=== PATIENT | female | born 1995 | race Caucasian/White ===

== ENCOUNTER 2016-07-17 14:33 | Emergency (ER) | payer SELFPAY ==
[2016-07-17] MEDS ORDERED: Sodium Chloride 0.9% 1,000 ML PRIMARY IV ONE (14:41)
[2016-07-17] MEDS ORDERED: ONDANSETRON 4 MG/2 ML VIAL IVP ONE (14:41)
[2016-07-17] MEDS ORDERED: MECLIZINE 25 MG CHEWABLE TABLET PO ONE (14:41)
--- NOTE | 2016-07-17 14:48 | PDOC ---
Gen Adult / Medical Screen HPI - General Chief Complaint: General Medical Stated Complaint: DIZZY, ?NEAR SYNCOPE Date Seen by Provider: 07/17/16 Time Seen by Provider: 14:42 Source: POSITIVE: Patient Exam Limitations: POSITIVE: No limitations Nurse's Notes Reviewed & Considered: Yes - Indicators Temperature Between 95 and 101 Degrees: Yes Respirations Between 12 and 20: Yes Blood Pressure Between 100-165 (sys) and 60-100 (sood): Yes Pulse Range Between 60-105 (100 for age > 60 years): Yes Severe Pain (Greater than 5/10 Reported): No Chest or Abdominal Pain: No Inability to Walk: No Pt Reports Active High Risk Cond. (TB/Hepatitis/HIV/Chemo): No Abnormal Mental Status: No - History of Present Illness Initial Comments: Patient comes in today chief complaint of dizziness. Patient was at work today when she became dizzy. She had not eaten all day. She then had something to eat at this time is starting to feel better. She had a near-syncope episode with sweating and nausea but no vomiting no fever or chills. She does have orthostatic hypotension recumbent her blood pressure is 112/59 with pulse rate of 99, sitting her blood pressure is 120/72 with a pulse rate of 109, standing her blood pressure is 1/71 with a pulse rate of 118. Body Location Affected: REPORTS: Head, Abdomen Timing: REPORTS: Abrupt Duration: 1-3 hours Similar Symptoms Previously: Yes Recent Care Received: REPORTS: Denies Any Prior Injuries Related to Current Complaint?: No - Patient Home Medications Home Medications: Home Medications NK [No Home Medications Reported] 07/17/16 - Patient Allergies Allergies/Adverse Reactions: Allergies Allergy/AdvReac Type Severity Reaction Status Date / Time No Known Allergies Allergy Verified 07/17/16 14:54 Past Medical History - heen HEENT History: Other (please comment) Additional HEENT History: TONSILLECTOMY Cardiovascular History: Denies History Respiratory History: Denies History Gastrointestinal History: Other (please comment) Additional Gastrointestinal History: APPY Genitourinary History: Denies History Endocrine History: Denies History Musculoskeletal History: Denies History Prosthesis or Implant: No Neurological History: Denies History Blood Disorders: Denies History Psychiatric History: Denies History Cancer History: Denies History History of MDRO: No Alcohol Use: Rarely Substance Use Type: None Previous Surgical History: Yes Type / Date of Surgery: APPY. TONSILS Significant Family History: No pertinent family hx ROS - Limitations ROS Limitations: No Limitations Constitution: REPORTS: Diaphoresis Cardiovascular: REPORTS: Denies Cardiac Symptoms Respiratory: REPORTS: Denies Resp Symptoms Neurological: REPORTS: Weakness Gastrointestinal: REPORTS: Nausea Endocrine: REPORTS: Denies Symptoms Musculoskeletal: REPORTS: Denies MS Symptoms Genitourinary: REPORTS: Denies Symptoms Eyes: REPORTS: Denies Symptoms ENT: REPORTS: Denies Symptoms Skin: REPORTS: Denies Skin Symptoms Lympathic: REPORTS: Denies Lympathic Symptoms Immunologic: POSITIVE: Denies Symptoms Psychiatric: POSITIVE: Denies Psych Symptoms Gen Adult/Medical Screen Exam - General Appearance General Appearance: POSITIVE: Alert, Cooperative, No Acute Distress, No Evidence of Trauma - HEENT HEENT: POSITIVE: Head Inspection Nml, Eyes Inspection Nml, Ears Inspection Nml, Nose Inspection Nml, Oral/Dental Inspect. Nml, Pharynx Inspect. Nml, PERRL, EOMI - Pupils Pupil Size: 6 mm: Bilateral - Neck Neck: POSITIVE: Normal Inspection, Thyroid Normal - Respiratory Respiratory: POSITIVE: No Respiratory Distress, Breath Sounds Normal, Chest Non- Tender - Cardiovascular Cardiovascular: POSITIVE: Regular Rate & Rhythm, No Murmur, No Gallop, PMI Normal - Abdomen Abdomen: Soft: (All Quadrants), Normal Bowel Sounds: (All Quadrants), Denies Tenderness: (All Quadrants) - Back Back: POSITIVE: Normal Inspection - Neurological / Psychological Mental Status: POSITIVE: Mood Normal, Affect Normal Orientation: POSITIVE: Oriented x 3 Reflexes: Radial (R): 3+, Radial (L): 3+ - Skin Skin: POSITIVE: Normal Color, Warm, Dry, No Rash - Extremities Extremity: Non-Tender: (All Extremities), Normal ROM: (All Extremities), Normal Inspection: (All Extremities) Gen Adlt/Medical Scrn Progress - Results Reviewed by me Lab Results Reviewed: Yes Lab Results:: Laboratory Results 07/17/16 07/17/16 Range/Units 14:41 14:50 WBC 10.83 H (4.8-10.8) 10^3/uL RBC 4.65 (4.20-5.40) 10^6/uL Hgb 14.7 (12.0-16.0) g/dL Hct 43.4 (37.0-47.0) % MCV 93.3 (81-99) FL MCH 31.6 H (27-31) PG MCHC 33.9 (33-37) g/dL RDW Std Deviation 41.7 (39-50) fL RDW Coeff of Brenden 12.4 (11.5-14.5) % Plt Count 272 (140-350) 10*3/uL MPV 10.8 (7.4-12.2) FL Immature Gran % (Auto) 0.2 (0-5) % Neut % (Auto) 66.0 (50-80) % Lymph % (Auto) 25.9 (10-50) % [place] % (Auto) 7.2 (5-15) % Eos % (Auto) 0.4 (0-8) % Baso % (Auto) 0.3 (0-1) % Immature Gran # (Auto) 0.02 10*3/UL Neut # (Auto) 7.16 10*3/UL Lymph # (Auto) 2.80 10*3/uL [place] # (Auto) 0.78 (0.3-0.8) 10*3/UL Eos # (Auto) 0.04 10*3/UL Baso # (Auto) 0.03 10*3/UL WBC Morphology Comment Normal morphology (NORM) Plt Morphology Comment Normal morphology (NORM) RBC Morph Comment Normal morphology (NORM) Sodium 141 (135-145) meq/L Potassium 3.8 (3.8-5.2) meq/L Chloride 103 (98-112) meq/L Carbon Dioxide 25 (23-33) meq/L Anion Gap 13 (5-20) BUN 12 (7-22) mg/dL Creatinine 0.7 (0.50-1.20) mg/dL Estimated GFR > 60 (>60 ml/min/1.73m(2)) BUN/Creatinine Ratio 17.14 (6-20) Glucose 57 L (78-110) mg/dL Mean Blood Glucose 77.503 mg/dL Hemoglobin A1c 4.91 (4.2-6.0) % Calculated Osmolality 289.0 (267-292) mOsm/kg Calcium 9.6 (8.7-10.7) mg/dL Magnesium 2.1 (1.6-2.4) mg/dL Total Bilirubin 1.4 H (0.3-1.2) mg/dL AST 66 H (8-39) IU/L ALT 17 (9-52) IU/L Alkaline Phosphatase 72 (38-126) IU/L Total Protein 8.3 H (6.1-8.0) g/dL Albumin 4.8 (3.5-4.8) g/dL Globulin 3.5 (2.50-4.10) g/dL Albumin/Globulin Ratio 1.30 (1.3-2.0) mg/g U Specif Grav (Refrac) 1.023 Urine HCG, Qual Negative EKG Interpretation:: POSITIVE: Normal Sinus Rhythm - Patient's Progress Pain Medication Addressed: POSITIVE: Yes Re-Examine Time: 16:58 Status: POSITIVE: Improved MDM / ED Course: Patient was examined, an IV started, blood drawn and sent to the lab for studies. She received a liter of normal saline, Zofran, and Tylenol, she also received meclizine. Findings: Glucose low at 57 neck Assessment: Dizziness, most likely related to hypoglycemia. Plan: Discharge home. Follow up with primary care physician - Consult Counseled: POSITIVE: Patient, Family, RE: Lab Results, RE: DX, RE: Need for F/U Patient Care Time - Estimated PCT Patient Care Time (In Minutes): 45 Vital Signs - Recent Vital Signs Vital Signs: Vital Signs (Last 8 hours) Temp Pulse Pulse Pulse Pulse Resp BP 07/17/16 14:44 99 109 H 118 H 07/17/16 14:35 97.5 F 112 H 16 129/79 BP BP BP Pulse Ox 07/17/16 14:44 112/59 120/72 106/71 07/17/16 14:35 98 - VS Reviewed Vital Signs Reviewed: Yes Discharge Clinical Impression: Dizziness, Hypoglycemia Discharge Disposition: Discharged to Home Condition: Stable Patient Instructions Given at Discharge: Dizziness (ED), Non-diabetic Hypoglycemia (ED)
[2016-07-17 15:12] LABS: BASOPHILS # (AUTO) 0.03 10*3/UL; BASOPHILS % (AUTO) 0.3 % (0-1); EOSINOPHILS % (AUTO) 0.4 % (0-8); HEMATOCRIT 43.4 % (37.0-47.0); HEMOGLOBIN 14.7 g/dL (12.0-16.0); IMM GRAN % (AUTO) 0.2 % (0-5); IMM GRAN# (AUTO) 0.02 10*3/UL; LYMPHOCYTES % (AUTO) 25.9 % (10-50); MEAN CORPUSCULAR HEMOGLOBIN 31.6 PG (27-31); MEAN CORPUSCULAR HGB CONC 33.9 g/dL (33-37); MEAN PLATELET VOLUME 10.8 FL (7.4-12.2); MONOCYTES # (AUTO) 0.78 10*3/UL (0.3-0.8); MONOCYTES % (AUTO) 7.2 % (5-15); NEUTROPHILS # (AUTO) 7.16 10*3/UL; RDW COEFFICIENT OF VARIATION 12.4 % (11.5-14.5); RED BLOOD COUNT 4.65 10^6/uL (4.20-5.40); WHITE BLOOD COUNT 10.83 10^3/uL (4.8-10.8)
[2016-07-17 15:26] LABS: PLATELET MORPHOLOGY COMMENT NORMAL MORPHOLOGY (NORM)
[2016-07-17 15:43] LABS: ASPARTATE AMINO TRANSFERASE 66 IU/L (8-39); BILIRUBIN,TOTAL 1.4 mg/dL (0.3-1.2); BLOOD UREA NITROGEN 12 mg/dL (7-22); BUN/CREATININE RATIO 17.14 (6-20); CALCIUM 9.6 mg/dL (8.7-10.7); CHLORIDE 103 meq/L (98-112); CREATININE 0.7 mg/dL (0.50-1.20); EST GLOMERULAR FILTRATION > 60 (>60 ml/min/1.73m(2)); GLUCOSE 57 mg/dL (78-110); MAGNESIUM 2.1 mg/dL (1.6-2.4); POTASSIUM 3.8 meq/L (3.8-5.2); SODIUM 141 meq/L (135-145); TOTAL PROTEIN 8.3 g/dL (6.1-8.0)
[2016-07-17 15:44] LABS: HEMOGLOBIN A1C 4.91 % (4.2-6.0); MEAN BLOOD GLUCOSE (CALC) 77.503 mg/dL
[2016-07-17 15:58] VITALS: RESP 16; TEMP 97.5
--- NOTE | 2016-07-17 16:12 | EKG ---
[address] [address] Measurements Intervals [place] Rate: 82 P: 33 [place]: 126 QRS: 47 QRSD: 85 T: 20 QT: 393 QTc: 432 Interpretive Statements SINUS RHYTHM WITH SINUS ARRHYTHMIA No previous ECG available for comparison Electronically Signed On 07-17-16 17:12:13 [facility] by [place] [email or web address]
[2016-07-17 16:26] LABS: URINE SPECIFIC GRAVITY - MAN 1.023
[2016-07-17] MEDS ORDERED: ACETAMINOPHEN 325 MG TABLET PO ONE (16:57)
== END 2016-07-17 17:27 | disposition home or self-care (01) ==
LOC: ER 14:33
DX: E16.2 Hypoglycemia, unspecified (principal); R42 Dizziness and giddiness
CPT/HCPCS: 80053; 82948; 83036; 83735; 84443; 84703; 85025; 93005; 93010; 96361; 96374; 99283; J2405; J7030

== ENCOUNTER 2018-08-30 06:02 | Inpatient (IN) ==
[2018-08-30] MEDS ORDERED: FAMOTIDINE 20 MG/2 ML VIAL IVP ONE (06:23)
[2018-08-30] MEDS ORDERED: Lactated Ringers 1,000 ML PRIMARY IV ONE (06:23)
[2018-08-30] MEDS ORDERED: CefOXitin Inj 2 GM in Sodium Chloride 0.9% 100 ML IV ONE (06:23)
[2018-08-30] MEDS ORDERED: CITRIC ACID/SODIUM CITRATE 30 ML CUP PO ONE (06:23)
[2018-08-30] MEDS ORDERED: Metoclopramide Inj 10 MG/2 ML VIAL IV ONE (06:23)
[2018-08-30] MEDS ORDERED: LIDOCAINE HCL 2 % 10 ML JELLY URO-JECT TOPICAL PRN (06:23)
[2018-08-30] MEDS ORDERED: LIDOCAINE W/ SODIUM BICARB 0.5 ML SYR SUBD PRN ×2 (06:23→09:26)
[2018-08-30] MEDS ORDERED: Lactated Ringers 1,000 ML PRIMARY IV SCH (06:30)
[2018-08-30] MEDS ORDERED: Oxytocin 20 Units + LR 20 UNIT/1,000 ML BAG IV SCH ×2 (06:30→10:30)
[2018-08-30 06:40] LABS: Hematocrit [HCT] 39.1 % (37.0-47.0); Hemoglobin [HGB] 13.1 g/dL (12.0-16.0); MEAN CORPUSCULAR HEMOGLOBIN 31.6 PG (27-31); MEAN CORPUSCULAR HGB CONC 33.5 g/dL (33-37); MEAN CORPUSCULAR VOLUME 94.4 FL (81-99); MEAN PLATELET VOLUME 11.3 FL (7.4-12.2); RED BLOOD COUNT 4.14 10^6/uL (4.20-5.40)
[2018-08-30] MEDS ORDERED: fentaNYL Inj 100 MCG/2 ML VIAL ONE (07:25)
[2018-08-30] MEDS ORDERED: OXYTOCIN 10 UNIT/1 ML ONE (08:21)
[2018-08-30] MEDS ORDERED: ePHEDrine Inj 50 MG/ML AMP ONE (08:22)
[2018-08-30] MEDS ORDERED: KETOROLAC 30 MG/1 ML VIAL ONE (08:34)
--- NOTE | 2018-08-30 09:25 | CRNA.PROCE ---
Central Neuraxis Block Placemt - - Safety Measures: Time Out Taken - - Type of Block: Subarachnoid Reason for Block: Surgical Moniters Used During Block: EKG, SPO2, NIBP Positioning: Sitting Skin Prep Used: ChloroPrep Draped: No Skin Infiltration - Enter Amount Used in Comment Field: 1% Xylocaine (mL): Yes (skin wheal) Spinal Needle Used: 22 [place]ke Local Anesthetic - Enter Amount Used in Comment Field: 0.75 % Bupivacaine with Dextrose (ml): Yes (2ml) Additive Used - Enter Amount Used in Comment Field: Fentanyl (mcg): Yes (15mcg) Bioclusive Dressing Applied: No - - Additional Details: Pt has moderate scoliosis, multiple attempts, 2X at L3L4, one attempt at L4L5 which was successful. Anesthesia Time - Other Weight: 105.404 kg Height: 5 ft 5 in Body Mass Index (BMI): 38.7
[2018-08-30] MEDS ORDERED: ONDANSETRON 4 MG/2 ML VIAL IVP PRN ×2 (09:26→10:30)
[2018-08-30] MEDS ORDERED: HYDROmorphone 2 MG/1 ML IVP PRN (09:26)
--- NOTE | 2018-08-30 09:26 | CRNA.PROGR ---
Anesthesia Time - Procedure/Recovery Time Start Date: 08/30/18 End Date: 08/30/18 Anesthesia : Time In: 08:02 Anesthesia : Time Out: 09:20 Anesthesia : Total Time: 78 - Total Anesthesia Time Total Anesthesia Time (minutes): 78 - Other Weight: 105.404 kg Height: 5 ft 5 in Body Mass Index (BMI): 38.7 Physical Status: P2 Anesthesia Type: Spinal Block Obstetrics: C/S anesthesia only
--- NOTE | 2018-08-30 09:26 | CRNA.PROGR ---
Anesthesia Recovery Phase I - Post Anesthesia Evaluation Patient's Condition on Arrival in Phase I: Stable Pain Level: 0
[2018-08-30] MEDS ORDERED: CALCIUM CARBONATE 500 MG (TUMS) CHEWABLE TABLET PO PRN (10:30)
[2018-08-30] MEDS ORDERED: diphenhydrAMINE 25 MG CAPSULE PO PRN (10:30)
[2018-08-30] MEDS ORDERED: Naloxone Inj 0.01 MG, Sodium Chloride 0.9% vial 1 ML IVP PRN ×2 (10:30)
[2018-08-30] MEDS ORDERED: BUTORPHANOL TARTRATE 2 MG/1 ML VIAL IVP PRN (10:30)
[2018-08-30] MEDS ORDERED: Nalbuphine Inj 20 MG/ML Ampule IVP PRN (10:30)
[2018-08-30] MEDS ORDERED: FAMOTIDINE 20 MG/2 ML VIAL IVP PRN (10:30)
[2018-08-30] MEDS ORDERED: diphenhydrAMINE 50 MG/1 ML VIAL IV PRN (10:30)
[2018-08-30] MEDS ORDERED: LANOLIN HPA 40 GM TUBE TOPICAL PRN (10:30)
[2018-08-30] MEDS ORDERED: DIPH,PERTUSS,TET(ADACEL) VAC/PF 0.5 ML (Tdap) IM ONE (10:30)
[2018-08-30] MEDS: oxyCODONE-ACETAMINOPHEN 5-325 TAB PO PRN ×3 (11:44→20:26)
[2018-08-30] MEDS: HYDROmorphone 2 MG/1 ML IV PRN ×2 (13:42→20:01)
[2018-08-30] MEDS: D5-LR 1,000 ML PRIMARY IV SCH ×2 (15:27→22:38)
[2018-08-30] MEDS: KETOROLAC 15 MG/1 ML VIAL IVP SCH ×2 (15:30→21:44)
[2018-08-30] MEDS ORDERED: KETOROLAC 15 MG/1 ML VIAL IVP SCH ×2 (16:30→21:00)
[2018-08-31] MEDS: oxyCODONE-ACETAMINOPHEN 5-325 TAB PO PRN ×5 (01:27→21:52)
[2018-08-31] MEDS: HYDROmorphone 2 MG/1 ML IV PRN (01:28)
[2018-08-31] MEDS: KETOROLAC 15 MG/1 ML VIAL IVP SCH ×2 (03:49→09:28)
[2018-08-31 04:48] LABS: Hematocrit [HCT] 34.1 % (37.0-47.0); Hemoglobin [HGB] 11.4 g/dL (12.0-16.0); MEAN CORPUSCULAR HEMOGLOBIN 32.3 PG (27-31); MEAN CORPUSCULAR HGB CONC 33.4 g/dL (33-37); MEAN CORPUSCULAR VOLUME 96.6 FL (81-99); RED BLOOD COUNT 3.53 10^6/uL (4.20-5.40)
[2018-08-31] MEDS: D5-LR 1,000 ML PRIMARY IV SCH (06:56)
[2018-08-31] MEDS: Prenatal Multivitamin Tab 1 TAB TAB PO SCH (09:28)
[2018-08-31] MEDS: Senna/Docusate Tab 1 TAB TAB PO SCH ×2 (09:28→21:52)
--- NOTE | 2018-08-31 12:12 | CRNA.PROGR ---
Anesthesia Note - Progress Notes Anesthesia Progress Note: Post OP Anesthesia Note Pt is sitting up in bed. She has been up ambulating, she is tolerating a regular diet. she denies any residual problems with the SAB. I did visit with her extensively RE the increased potential for for her to experience a spinal head ache. She was instructed to call if she suspected a spinal head ache. Current VS are stable. Vital Signs - Last Taken Temperature 97.5 F 08/31/18 09:30 Pulse Rate 96 08/31/18 09:30 Respiratory Rate 15 08/31/18 09:30 Blood Pressure 109/61 08/31/18 09:30 Pulse Ox 96 08/31/18 09:30
[2018-08-31] MEDS: IBUPROFEN 800 MG TABLET PO SCH ×2 (14:54→23:41)
[2018-08-31] MEDS: SIMETHICONE 80 MG TABLET PO PRN (21:52)
[2018-09-01] MEDS: oxyCODONE-ACETAMINOPHEN 5-325 TAB PO PRN ×5 (02:31→20:57)
[2018-09-01] MEDS: IBUPROFEN 800 MG TABLET PO SCH ×3 (07:09→22:23)
[2018-09-01] MEDS: SIMETHICONE 80 MG TABLET PO PRN (09:38)
[2018-09-01] MEDS: Senna/Docusate Tab 1 TAB TAB PO SCH ×2 (09:38→20:57)
[2018-09-01] MEDS: Prenatal Multivitamin Tab 1 TAB TAB PO SCH (09:38)
[2018-09-02] MEDS: oxyCODONE-ACETAMINOPHEN 5-325 TAB PO PRN ×3 (01:04→13:28)
[2018-09-02] MEDS: Prenatal Multivitamin Tab 1 TAB TAB PO SCH (08:23)
[2018-09-02] MEDS: Senna/Docusate Tab 1 TAB TAB PO SCH (08:23)
[2018-09-02] MEDS: IBUPROFEN 800 MG TABLET PO SCH (08:24)
[2018-09-02 10:14] VITALS: BP 109/70; RESP 18; TEMP 97.7; O2SAT 94
--- NOTE | 2018-09-20 08:54 | OB.OP.NOTE ---
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 Procedure: Primary section Complications: None Estimated Blood Loss (mL): 600 Urine Output (mL): 15 Fluids: 2700 cc LR + 20 mU of pitocin Indications: Pt is a 22 yo at 39 weeks with persistent breech presentation. She decline d the option of an external cephalic version. She requested a primary section. Findings: Female , clear fluid, breech presentation. 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 Description of Procedure: The patient was taken to the operating room where spinal anesthesia was found to be adequate. She was then prepared and draped in the normal sterile fashion in the dorsal supine position with a leftward tilt. A Pfannenstiel skin incision was then made with the scalpel and carried through to the underlying layer of fascia with the Bovie. The fascia was incised in the midline and the incision extended laterally with the Bovie. The superior aspect of the fascial incision was then grasped with the Cecy clamps, elevated, and the underlying rectus muscles dissected off bluntly. Attention was then turned to the inferior aspect of this incision which, in a similar fashion, was grasped with the Cecy clamps and the rectus muscles dissected off both bluntly and with the Bovie. The rectus muscles were then in the midline, and the peritoneum identified and entered digitally. The peritoneal incision was then extended superiorly and inferiorly with good visualization of the bladder. The Elio retractor was then inserted and the vesicouterine peritoneum was identified. The lower uterine segment was incised in a transverse fashion with the scalpel. The uterine incision was then extended laterally in a blunt fashion. The 's breech was delivered atraumatically. The nose and mouth were suctioned with the bulb suction and the cord clamped and cut after 45 seconds for delayed cord clamping. The was handed off to the awaiting nurse. Cord gases and cord blood were sent for analysis. The placenta was then removed manually; the uterus exteriorized, and cleared of all clots and debris. At that point, it was found that the pt had a unicornuate uterus with only the left horn formed, with an absent right ovary and clubbed-appearing right fallopian tube. The uterine incision was repaired with 0 Vicryl in a running, locked fashion. A second layer of the same suture was used to obtain excellent hemostasis. The peritoneal cavity was then copiously irrigated with warm saline. The uterus was returned to the abdomen. The paracolic gutters were copiously irrigated with warm saline and a second look at the uterine incision continued to reveal excellent hemostasis. The peritoneum was closed with 3-0 Vicryl. The fascia reapproximated with 0 Vicryl in a running fashion. The subcutaneous space was irrigated copiously with warm saline and then closed first with 3-0 Vicryl and then more superficially with Insorb absorbable sutures. The skin was reapproximated with Steri-Strips and a Silverlon dressing applied. Fundal massage was completed with no clots in vaginal vault. The patient tolerated the procedure well. Sponge, lap, and needle counts were correct x2. Mefoxin was given preoperatively less than one hour prior to incision time. The patient was taken to the recovery room in stable condition. Patient Problems - Patient Problem List (1) Breech presentation Status: Acute Code(s): O32.1XX0 - Maternal care for breech presentation, not applicable or unspecified Qualifiers: Fetus number: single or unspecified fetus Qualified Code(s): O32.1XX0 - Maternal care for breech presentation, not applicable or unspecified Category: Medical (2) Unicornate uterus complicating Status: Acute Code(s): O34.00 - Maternal care for unspecified congenital malformation of uterus, unspecified trimester; Q51.4 - Unicornate uterus Qualifiers: Trimester: third trimester Qualified Code(s): O34.03 - Maternal care for unspecified congenital malformation of uterus, third trimester; Q51.4 - Unicornate uterus Category: Medical
--- NOTE | 2018-09-26 11:21 | OB.PROGRES ---
Subjective Post Day: 1 Pain Management: PO Jimenez Catheter: Yes Flatus: Yes Small 10-25 ml Diet: Regular Feeding Method: / Bottle Ambulating: Yes Objective - General General Appearance: POSITIVE: No Acute Distress, Cooperative - Cardiovacular Cardiovascular Exam: POSITIVE: RRR, No Murmur Edema: +1 Pedal Edema Extremities: Negative Olimpia's - Bilaterally - Respiratory Respiratory Exam: POSITIVE: Clear to Auscultation - Bilaterally, Breathing Non Labored - Abdomen Bowel Sounds: Hypoactive Abdominal Wound Assessment: Silverlone Dressing Assesstment / Plan (1) Breech presentation Status: Acute Qualifiers: Fetus number: single or unspecified fetus Qualified Code(s): O32.1XX0 - Maternal care for breech presentation, not applicable or unspecified (2) Unicornate uterus complicating Status: Acute Qualifiers: Trimester: third trimester Qualified Code(s): O34.03 - Maternal care for unspecified congenital malformation of uterus, third trimester; Q51.4 - Unicornate uterus (3) Status post primary low transverse section Status: Acute Assessment / Plan: -percocet and toradol for pain. -working on support. -ambulate today tid, discussed with pt. -d/c sherice this am and shower/change silverlon. -routine cares.
--- NOTE | 2018-09-26 11:24 | OB.PROGRES ---
Subjective Post Day: 2 Pain Management: PO Jimenez Catheter: No Flatus: Yes Lochia Color: Rubra/Red Scant < 10 ml Diet: Regular Feeding Method: / Bottle Ambulating: Yes Objective - General General Appearance: POSITIVE: No Acute Distress, Cooperative - Cardiovacular Cardiovascular Exam: POSITIVE: RRR, No Murmur, No Clicks, No Gallops, No Rubs Edema: +1 Pedal Edema Extremities: Negative Olimpia's - Bilaterally - Respiratory Respiratory Exam: POSITIVE: Clear to Auscultation - Bilaterally, Breathing Non Labored - Abdomen Bowel Sounds: Present Abdominal Wound Assessment: Silverlone Dressing Assesstment / Plan (1) Breech presentation Status: Acute Qualifiers: Fetus number: single or unspecified fetus Qualified Code(s): O32.1XX0 - Maternal care for breech presentation, not applicable or unspecified (2) Unicornate uterus complicating Status: Acute Qualifiers: Trimester: third trimester Qualified Code(s): O34.03 - Maternal care for unspecified congenital malformation of uterus, third trimester; Q51.4 - Unicornate uterus (3) Status post primary low transverse section Status: Acute Assessment / Plan: -routine partpartum cares. -continue breast feeding support. -encourage pt to ambulate. -baby is still struggling with hypoglycemia. Given that this is pt's first baby, she is needing max support with nursing assistance. She would benefit from another day of teaching and assistance from the nurses. -rh positive. -rubella immune. -possible d/c home tomorrow.
--- NOTE | 2018-09-26 11:31 | DCSUMMARY ---
Hospitalization Summary Admit Date: 08/30/18 Discharge Date: 09/02/18 Primary Diagnosis:: Persistent breech presentation Secondary Diagnosis:: Persistent breech presentation, unicorunate uterus, absent right ovary and clubbed right fallopian tube. Primary Surgery and Date: Primary low transverse section on 08/30. Delivery Type: Hospital Course: Pt was admitted for primary section for breech presentation. For details of her surgery, please see operative report elsewhere in the chart. / Postop Complications: Pt had no complications. She received toradol and percocet for pain control. Her silverlon dressing was changed on POD #1. On the day of discharge, she was ambulating around the room, tolerating a regular diet, and fully able to independently complete her activities of daily living. Melbeta Complications: Small for gestational age, hypoglycemia that was treated with IV dextrose and fortified formula and breast milk. Exam - Vitals Vital Signs: Vital Signs Temperature 97.7 F Temperature Source Temporal Artery Scan Pulse Rate [Pulse Oximeter] 85 Pulse Rate 70 Respiratory Rate 18 Blood Pressure [Right Arm] 109/70 Blood Pressure [Left Arm] 114/72 Blood Pressure 104/80 Pulse Ox 94 Oxygen Flow Rate RA Oxygen Delivery Method Room Air Height 5 ft 5 in Weight 232 lb 6 oz - General General Appearance: No Acute Distress, Cooperative - Head Head Exam: Normal Inspection, Normocephalic, Atraumatic - Neck Neck Exam: Normal Inspection - Respiratory Respiratory Exam: POSITIVE: Clear to Auscultation - Bilaterally, Breathing Non Labored - Cardiovascular Cardiovascular Exam: POSITIVE: RRR, No Murmur, No Gallops - GI/Abdominal GI/Abdominal Exam: POSITIVE: Normal Bowel Sounds, Non Tender, Non Distended, Soft - Extremities Extremities Exam: POSITIVE: Normal Inspection, Normal Capillary Refill, +1 Edema - Back Back Exam: POSITIVE: Normal Inspection - Neurological Neurological Exam: POSITIVE: Alert, Oriented x 3 - Psychiatric Psychiatric Exam: POSITIVE: Normal Affect, Normal Mood, Flat Affect - Integumentary Integumentary Exam: POSITIVE: Normal Color, Warm, Dry Patient Problems - Patient Problem List (1) Breech presentation Status: Acute Code(s): O32.1XX0 - Maternal care for breech presentation, not applicable or unspecified Qualifiers: Fetus number: single or unspecified fetus Qualified Code(s): O32.1XX0 - Maternal care for breech presentation, not applicable or unspecified Category: Medical (2) Unicornate uterus complicating Status: Acute Code(s): O34.00 - Maternal care for unspecified congenital malformation of uterus, unspecified trimester; Q51.4 - Unicornate uterus Qualifiers: Trimester: third trimester Qualified Code(s): O34.03 - Maternal care for unspecified congenital malformation of uterus, third trimester; Q51.4 - Unicornate uterus Category: Medical (3) Status post primary low transverse section Status: Acute Code(s): Z98.891 - History of uterine scar from previous surgery Category: Surgical
== END 2018-09-02 15:23 | disposition home or self-care (01) | DRG 788 ==
LOC: OBOR 06:02 → OBIP 09:38
PROVIDERS: ADMIT Family Medicine; ATTEND Family Medicine